=== PATIENT | female | born 1960 | race Caucasian/White ===

== ENCOUNTER 2017-10-07 18:52 | Emergency (ER) ==
[2017-10-07 18:56] VITALS: BP 150/79; TEMP 98.1; BMI 37.5
[2017-10-07] MEDS ORDERED: DEMEROL 50 MG/ML VIAL IM STA (19:41)
[2017-10-07] MEDS ORDERED: ZOFRAN 4 MG/2 ML IM STA (19:41)
--- NOTE | 2017-10-07 19:44 | ED.PDOC ---
General ED Provider: Dr. ANGELIA SAMS Chief Complaint: Back Pain Stated Complaint: Patient been hurting left side midback, and when she coughed today the pain got worse. ever since the pain is worse when she coughs. Time Seen by Physician: 19:42 Mode of Arrival: Walk-In Information Source: Patient Primary Care Provider: [facility] Nursing and Triage Documentation Reviewed and Agree: Yes Reviewed sepsis parameters & appropriate labs ordered?: Yes System Inflammatory Response Syndrome: Not Applicable Sepsis Protocol: For patient's 13 years and over: Temp is 96.8 and below OR 101 and greater Pulse >90 BPM Resp >20/minute Acutely Altered Mental Status Are patient's symptoms suggestive of a new infection, such as: -Pneumonia -Skin, Soft Tissue -Endocarditis -UTI -Bone, Joint Infection -Implantable Device -Acute Abdominal Infection -Wound Infection -Meningitis -Blood Stream Catheter Infection -Unknown Cardiovascular Complaint Exam - Chest Pain Complaint/Exam Onset: Sudden Symptoms Are: Still present Timing: Constant Initial Severity: Moderate Current Severity: Moderate Location: Reports: Left lateral Character: Reports: Tightness, Pressure Aggravating: Reports: Movement, Deep breaths Alleviating: Reports: None Associated Signs and Symptoms: Reports: Cough. Denies: Diaphoresis, Nausea, Vomiting, Fever, Palpitations, Hemoptysis, Back pain, Abdominal pain, Dizziness , Short of air, Calf pain, Calf swelling Related Surgical History: Reports: None History of Healthcare-Acquired Pneumonia: Reports: No AMI/ACS Risk Factors: Reports: None TAD Risk Factors: Reports: None Pulmonary Embolism Risk Factors: Reports: None Prior Care for this Complaint: No Recent Stress Test: No Recent Echo/LV Function: No JVD Present: No Subcutaneous Emphysema Present: No Diminshed Breath Sounds: No Reproducible Chest Wall Pain: No Bilateral Pulses Present: No Unequal Pulses Noted: No If Risk Factors for AMI/ACS Consider: EKG, Cardiac Enzymes, Serial Studies, Oxygen, Aspirin Differential Diagnoses: Chest Wall Pain, Other (MS HUG) Review of Systems - Review Of Systems Constitutional: Reports: No symptoms Eyes: Reports: No symptoms Ears, Nose, Mouth, Throat: Reports: No symptoms Respiratory: Reports: No symptoms Cardiac: Reports: Chest pain GI: Reports: No symptoms : Reports: No symptoms Musculoskeletal: Reports: No symptoms Skin: Reports: No symptoms Neurological: Reports: No symptoms Endocrine: Reports: No symptoms Hematologic/Lymphatic: Reports: No symptoms All Other Systems: Reviewed and Negative Past Medical History - Past Medical History Previously Healthy: Yes Endocrine: Reports: None Cardiovascular: Reports: None Respiratory: Reports: None Hematological: Reports: None Gastrointestinal: Reports: None Genitourinary: Reports: None Neuro/Psych: Reports: Other (MS seejuan m Bashir) Musculoskeletal: Reports: Other (rib pain) Cancer: Reports: None Last Menstrual Period: n/a - Surgical History General Surgical History: Reports: Hysterectomy, Tubal ligation, - Family History Family History: Reports: Unknown - Social History Smoking Status: Current every day smoker Hx Substance Use: No Alcohol Screening: None Physical Exam - Physical Exam Appearance: Well-appearing, No pain distress, Well-nourished Eyes: STACEY, EOMI, Conjunctiva clear ENT: Ears normal, Nose normal, Oropharynx normal Respiratory: Airway patent, Breath sounds clear, Breath sounds equal, Respirations nonlabored Cardiovascular: RRR, Pulses normal, No rub, No murmur GI/: Soft, Nontender, No masses, Bowel sounds normal, No Organomegaly Musculoskeletal: Normal strength, ROM intact, No edema, No calf tenderness Skin: Warm, Dry, Normal color Neurological: Sensation intact, Motor intact, Reflexes intact, Cranial nerves intact, Alert, Oriented Psychiatric: Affect appropriate, Mood appropriate Interpretation - Radiology Interpretation Radiology Interpretation By: ED Physician Radiology Results: Negative Critical Care Note - Critical Care Note Total Time (mins): 30 Course - Course Orders, Labs, Meds: Orders Category Date Time Status Meperidine HCl/Pf [Demerol 50 mg/ml Vial] MEDS 10/07/17 19:41 Discontinued 50 mg IM ONCE STA Ondansetron HCl/Pf [Zofran 4 mg/2 ml] MEDS 10/07/17 19:41 Discontinued 4 mg IM ONCE STA CHEST, 2 VIEWS PA & LAT Stat RADS 10/07/17 19:41 Completed Medications Discontinued Medications Generic Name Dose Route Start Last Admin Trade Name Freq PRN Reason Stop Dose Admin Meperidine HCl 50 mg 10/07/17 19:41 10/07/17 19:52 Demerol 50 Mg/Ml Vial IM 10/07/17 19:42 50 mg ONCE STA Administration Ondansetron HCl 4 mg 10/07/17 19:41 10/07/17 19:57 Zofran 4 Mg/2 Ml IM 10/07/17 19:42 4 mg ONCE STA Administration Vital Signs: Temp Pulse Resp BP Pulse Ox 10/07/17 18:52 98.1 F 94 H 20 150/79 H 93 L VALERIE Risk Score VALERIE Risk Score: Risk Score Odds of by 30D 0 0.1 (0.1-0.2) 1 0.3 (0.2-0.3) 2 0.4 (0.3-0.5) 3 0.7 (0.6-0.9) 4 1.2 (1.0-1.5) 5 2.2 (1.9-2.6) 6 3.0 (2.5-3.6) 7 4.8 (3.8-6.1) Departure - Departure Time of Disposition: 20:38 Disposition: HOME SELF-CARE Discharge Problem: Backache, Chest wall pain Instructions: Chest Wall Pain (ED) Condition: Stable Pt referred to PMD for follow-up: Yes IPMP verified?: No Additional Instructions: Take medication with food, Increase Hydration Probiotics F/u with PMD Prescriptions: Cephalexin [Keflex] 500 mg PO Q12HR #14 capsule Prednisone 10 mg PO BIDWM #14 tablet Allergies/Adverse Reactions: Allergies No Known Allergies Allergy (Verified 10/07/17 18:57) Home Medications: Ambulatory Orders Amlodipine Besylate 10 mg PO DAILY 10/07/17 Ascorbic Acid [Vitamin C with Erica Hips] 500 mg PO DAILY 10/07/17 Biotin 10 mg PO DAILY 10/07/17 Bupropion HCl [Wellbutrin Xl] 150 mg PO DAILY 10/07/17 Cephalexin [Keflex] 500 mg PO Q12HR #14 capsule 10/07/17 Cholecalciferol (Vitamin D3) [Vitamin D3] 1,000 unit PO TID 10/07/17 Cyanocobalamin (Vitamin B-12) [Vitamin B-12] 500 mcg PO BID 10/07/17 Gabapentin 300 mg PO Q4H 10/07/17 Prednisone 10 mg PO BIDWM #14 tablet 10/07/17 Disposition Discussed With: Patient, Family
--- NOTE | 2017-10-07 20:07 | DI ---
EXAM: Chest PA and lateral HISTORY: Left side rib pain FINDINGS: Minimal linear opacity is noted in the left lung base since 07/27 06/06. No acute consoli dation is appreciated. The aorta is atherosclerotic. The lungs are hyperinflated. The heart size is normal. The bones are intact. No pneumothorax or pleural effusions are detected. IMPRESSION: Minimal probable atelectasis in the left lung base. Aortic atherosclerosis. Suggestion of emphysema.
== END 2017-10-07 20:47 | disposition home or self-care (01) ==
LOC: ED 18:52
DX: M54.9 Dorsalgia, unspecified (principal); R07.89 Other chest pain; R05 Cough; G35 Multiple sclerosis; F17.210 Nicotine dependence, cigarettes, uncomplicated; Z79.899 Other long term (current) drug therapy
CPT/HCPCS: 96372; 99283